=== PATIENT | female | born 1965 | race Caucasian/White ===

== ENCOUNTER 2024-05-07 12:12 | Inpatient (IN) | payer BC, SELFPAY ==
[2024-05-05] VITALS (14 sets, daily range): BP systolic 100–149; BP diastolic 68–87; PULSE 97–113; BMI 19.8
--- NOTE | 2024-05-05 09:25 | ED.GENMED ---
History of Present Illness
<Charlene Chery MD, Resident - Last Filed: 05/06/24 06:19>
General
Chief Complaint: Fainting/Passed Out
Time Seen by Provider: 05/05/24 08:49
History of Present Illness
History of Present Illness:
59 y/o female with pmhx of type 1 diabetes presenting to the ED via EMS after having a syncopal episode this morning. Pt remembers waking up this morning, getting out of bed and feeling a bit dizzy and was on her way to the bathroom. Pt does not
recall how she fell but remembers waking up after a few minutes and hearing her [id number] calling her name. She does not recall if she hit her head. Denies headache, nausea/vomiting, neck pain, shortness of breath. Denies any other prodromal
symptoms. Her blood sugar level at that time was ~190. Pt notes midsternal chest pain that is not sharp or pressure like, and is not associated with breathing or moving. Pt states has been feeling dizzy and fatigued for the past few days and her
blood sugar levels were as low as 47 last week (before ). Pt denies any prior episodes of syncope. Pt is visiting from [place].
Past History
<Charlene Chery MD, Resident - Last Filed: 05/06/24 06:19>
Past History
ED Past Medical History: IDDM
ED Past Surgical History: and Gynecological (D & C)
Social History
Tobacco: Non-smoker
Alcohol: None
Review of Systems
<Charlene Chery MD, Resident - Last Filed: 05/06/24 06:19>
Review of Systems
Constitutional: Reports fatigue
EENT: Reports runny nose
Respiratory: Reports no symptoms
Cardiac: Reports chest pain
ABD/GI: Reports no symptoms
: Reports no symptoms
Musculoskeletal: Reports no symptoms
Skin: Reports no symptoms
Neurological: Reports no symptoms
Endocrine: Reports no symptoms
Hematologic/Lymphatic: Reports no symptoms
Psychiatric: Reports no symptoms
Phy Exam
<Charlene Chery MD, Resident - Last Filed: 05/06/24 06:19>
Physical Exam
Physical Exam:
GENERAL: Alert, in no apparent distress.
EYE: Pupils equal and reactive.
NECK: Supple, no significant adenopathy. No midline tenderness.
ENT: o/p clr, mmm.
CARDIAC: Regular rate and rhythm.
LUNGS: Clear breath sounds bilaterally, no acute respiratory distress, no wheezes/rales/rhonchi
ABDOMEN: Soft, without focal tenderness, no r/g, no cvat
NEUROLOGICAL: Alert and oriented, no focal neuro deficits. Mild tenderness on left frontal scalp.
SKIN: Warm and dry, skin intact. No ecchymosis or abrasion.
MUSCULOSKELETAL: No edema, well perfused. ROM in all extremities is normal.
PSYCH: Normal and appropriate interaction.
Course
<Charlene Chery MD, Resident - Last Filed: 05/06/24 06:19>
Orders/Labs/Results
Orders:
Orders
05/05/24 08:49
EKG [Electrocardiogram (*1)] Urgent
Reason for Study: Syncope
EKG- Treatment ONCE
05/05/24 09:37
CT Head W/o Iv Contrast Urgent
Comment:
Reason For Exam: FALL AND HEAD TRAUMA
05/05/24 09:38
0.9% Sodium Chloride 1000 ml [Nss] 1,000 ml IV BOLUS
05/05/24 09:44
COVID-19 Antigen Urgent
Source: Nasal Swab
Complete Blood Count/With Diff Urgent
Comprehensive Metabolic Panel Urgent
D-Dimer Urgent
Glycohemoglobin (HgbA1c) Urgent
Troponin I Urgent
05/05/24 10:44
CT Chest Pe Study Urgent
Comment:
Reason For Exam: Chest pain and elevated D dimer
05/05/24 10:45
US Periph Venous LOWER Ext Surjit Urgent
Comment:
Reason For Exam: SOB and positive D dimer
05/05/24 14:53
Admit/Transfer Patient As Directed
Co-Sign Provider:
Level of Care: Observation services
Assign to:: Telemetry
Physician / Group: Steve King
Diagnosis: Syncope
Reason for Telemetry: Syncope
Date to Stop Telemetry: 05/07/24
Time to Stop Telemetry: 11:00
PRN Pain Medication Management As Directed
May give lesser potent ordered pain med per pt: Yes
preference::
Protocol:: Medication orders for pain may be administered in a
manner that supports deferring to patient preference
when the pt is:
- Requesting an ordered lesser potent pain medication.
Least to most potent pain medications are defined
as: acetaminophen < NSAID < tramadol < opioids
(morphine, oxycodone, hydromorphone).
- Requesting a lesser dose of the same medication IF
ORDERED.
- Requesting a less intrusive route of administration
if both routes are prescribed by the provider (PO <
IV).
05/05/24 14:54
Code Status As Directed
Resuscitation Status: Full Code
05/05/24 Dinner
1800 calorie (15 carb) Diabetic
At Your Request: Full Participation
05/05/24 15:36
Lactated Ringers [Lr] 1,000 ml IV 100 mls/hr
05/05/24 15:39
Influenza A+B Rapid Molecular Urgent
SILVANO Source: Nasal Swab
Specimen Description:
05/05/24 16:55
Dextrose 50%-Water [Dextrose 50% Syringe] 12.5 grams IV [id number] PRN
Glucagon [GlucaGen] 1 mg IM PRN PRN
Insulin Aspart Corrective Low [Novolog Flexpen-Low Resistance] See Protocol SC AC
05/05/24 18:30
Acetaminophen [Tylenol] 650 mg PO Q4HPRN PRN
Enoxaparin Sodium [Lovenox] 40 mg SC QPM
05/05/24 18:30
Activity As Directed
Activity Level: Ambulate
Bedside Glucose Monitoring As Directed
Frequency: Q1H
Orthostatic Vital Signs As Directed
Orthostatic VS Frequency: BID
Vital Signs As Directed
Frequency: Per unit guidelines
Weight As Directed
Frequency: Once
DX Deep Vein Thrombosis Video Routine
05/05/24 19:42
Hemoglobin A1c [Glycohemoglobin (HgbA1c)] Routine
05/06/24 06:00
Complete Blood Count/No Diff IN AM
05/07/24 11:00
DC Protocol for Telemetry ONCE
Abnormal Lab Results
05/05/24
09:44
Hgb 10.0 L g/dL
(12.0-16.0)
Hct 31.6 L %
(37.0-47.0)
MCV 74.5 L fL
(81.0-99.0)
MCH 23.6 L pg
(27.0-31.0)
MCHC 31.6 L g/dL
(33.0-37.0)
RDW 18.6 H %
(11.5-14.5)
MPV 10.9 H fL
(7.4-10.4)
Immature Gran % 0.6 H %
(0-0.5)
D-Dimer 2.15 H ug/mlFEU
(0.00-0.50)
BUN 29 H mg/dl
(7-17)
Glucose 176 H mg/dl
(70-99)
Alkaline Phosphatase 172 H U/L
(38-126)
05/05/24 09:44
05/05/24 09:44
Vital Signs
Initial and Last Documented VS:
Initial Vital Signs
Pulse Ox
99
05/05/24 08:48
Last Documented Vital Signs
Temp Pulse Resp BP Pulse Ox
97.9 F 77 18 121/65 96
05/06/24 03:34 05/06/24 05:15 05/06/24 05:15 05/06/24 04:00 05/06/24 05:15
<Naren Mcghee MD - Last Filed: 05/05/24 13:36>
Orders/Labs/Results
Orders:
Orders
05/05/24 08:49
EKG [Electrocardiogram (*1)] Urgent
Reason for Study: Syncope
EKG- Treatment ONCE
05/05/24 09:37
CT Head W/o Iv Contrast Urgent
Comment:
Reason For Exam: FALL AND HEAD TRAUMA
05/05/24 09:38
0.9% Sodium Chloride 1000 ml [Nss] 1,000 ml IV BOLUS
05/05/24 09:44
COVID-19 Antigen Urgent
Source: Nasal Swab
Complete Blood Count/With Diff Urgent
Comprehensive Metabolic Panel Urgent
D-Dimer Urgent
Glycohemoglobin (HgbA1c) Urgent
Troponin I Urgent
05/05/24 10:44
CT Chest Pe Study Urgent
Comment:
Reason For Exam: Chest pain and elevated D dimer
05/05/24 10:45
US Periph Venous LOWER Ext Surjit Urgent
Comment:
Reason For Exam: SOB and positive D dimer
05/05/24 14:53
Admit/Transfer Patient As Directed
Co-Sign Provider:
Level of Care: Observation services
Assign to:: Telemetry
Physician / Group: Steve King
Diagnosis: Syncope
Reason for Telemetry: Syncope
Date to Stop Telemetry: 05/07/24
Time to Stop Telemetry: 11:00
PRN Pain Medication Management As Directed
May give lesser potent ordered pain med per pt: Yes
preference::
Protocol:: Medication orders for pain may be administered in a
manner that supports deferring to patient preference
when the pt is:
- Requesting an ordered lesser potent pain medication.
Least to most potent pain medications are defined
as: acetaminophen < NSAID < tramadol < opioids
(morphine, oxycodone, hydromorphone).
- Requesting a lesser dose of the same medication IF
ORDERED.
- Requesting a less intrusive route of administration
if both routes are prescribed by the provider (PO <
IV).
05/05/24 14:54
Code Status As Directed
Resuscitation Status: Full Code
05/05/24 Dinner
1800 calorie (15 carb) Diabetic
At Your Request: Full Participation
05/05/24 15:36
Lactated Ringers [Lr] 1,000 ml IV 100 mls/hr
05/05/24 15:39
Influenza A+B Rapid Molecular Urgent
SILVANO Source: Nasal Swab
Specimen Description:
05/05/24 16:55
Dextrose 50%-Water [Dextrose 50% Syringe] 12.5 grams IV [id number] PRN
Glucagon [GlucaGen] 1 mg IM PRN PRN
Insulin Aspart Corrective Low [Novolog Flexpen-Low Resistance] See Protocol SC AC
05/05/24 18:30
Acetaminophen [Tylenol] 650 mg PO Q4HPRN PRN
Enoxaparin Sodium [Lovenox] 40 mg SC QPM
05/05/24 18:30
Activity As Directed
Activity Level: Ambulate
Bedside Glucose Monitoring As Directed
Frequency: Q1H
Orthostatic Vital Signs As Directed
Orthostatic VS Frequency: BID
Vital Signs As Directed
Frequency: Per unit guidelines
Weight As Directed
Frequency: Once
DX Deep Vein Thrombosis Video Routine
05/05/24 19:42
Hemoglobin A1c [Glycohemoglobin (HgbA1c)] Routine
05/06/24 06:00
Complete Blood Count/No Diff IN AM
05/07/24 11:00
DC Protocol for Telemetry ONCE
Abnormal Lab Results
05/05/24
09:44
Hgb 10.0 L g/dL
(12.0-16.0)
Hct 31.6 L %
(37.0-47.0)
MCV 74.5 L fL
(81.0-99.0)
MCH 23.6 L pg
(27.0-31.0)
MCHC 31.6 L g/dL
(33.0-37.0)
RDW 18.6 H %
(11.5-14.5)
MPV 10.9 H fL
(7.4-10.4)
Immature Gran % 0.6 H %
(0-0.5)
D-Dimer 2.15 H ug/mlFEU
(0.00-0.50)
BUN 29 H mg/dl
(7-17)
Glucose 176 H mg/dl
(70-99)
Alkaline Phosphatase 172 H U/L
(38-126)
05/05/24 09:44
05/05/24 09:44
Vital Signs
Initial and Last Documented VS:
Initial Vital Signs
Pulse Ox
99
05/05/24 08:48
Last Documented Vital Signs
Temp Pulse Resp BP Pulse Ox
97.9 F 77 18 121/65 96
05/06/24 03:34 05/06/24 05:15 05/06/24 05:15 05/06/24 04:00 05/06/24 05:15
<Charlene Chery MD, Resident - Last Filed: 05/06/24 06:19>
MDM/Problems Addressed
Differential Diagnosis Includes:
Vasovagal syncope
Arrhythmia
PE
Syncope 2/2 hypoglycemia
TIA/Stroke
MDM/Problems Addressed:
- CBC, CMP
- EKG, Troponin
- COVID-19
- Head CT w/o contrast
- D-dimer
- IVF
<Charlene Chery MD, Resident - Last Filed: 05/06/24 06:19>
*Critical Care Note
Total Time (30-74mins, 75-104mins- exclusive of procedures): Not Applicable
ED Attending Note
<Charlene Chery MD, Resident - Last Filed: 05/06/24 06:19>
-
Portions of this chart may have been created with voice recognition software.� Occasional wrong word or��sound alike� substitutions may have occurred due to the inherent limitations of voice recognition software.
<Naren Mcghee MD - Last Filed: 05/05/24 13:36>
ED Attending Note
Patient seen and examined by attending physician: Yes
I performed a history and physical exam of patient and discussed management with resident, I reviewed resident's note and agree with documented findings and plan of care.: Yes
ED Attending Note:
59-year-old female visiting from [place]. Has felt slightly off the last 2 to 3 days with some mild shortness of breath and fatigue. He stood up this morning from bed felt lightheaded walked into the bathroom and had a very brief syncopal
episode. Hit the left side of her head. No preceding chest pain palpitations. However after she woke up she had some mild chest discomfort. Mild headache. No neck pain no abdominal pain no other injury or complaint.
GENERAL: Alert and oriented in no apparent distress. Mild tenderness left scientology area. No swelling or deformity. No hematoma.
EYE: Orbits normal.
NECK: Supple, nontender
ENT: Pharynx without erythema
CARDIAC: Regular rate and rhythm without any obvious murmurs.
LUNGS: Clear breath sounds,normal
ABDOMEN: Soft, without focal tenderness or distention
NEUROLOGICAL: Alert and oriented , grossly non-focal
SKIN: Warm and dry, no rash or lesion, no discoloration, skin intact.
MUSCULOSKELETAL: No edema,no deformity.Good color
PSYCH: Normal and appropriate interaction.
Brief syncope described as likely vasovagal. Seems related to the lightheadedness with standing. However has not felt well the last few days. With some shortness of breath and a long flight will evaluate for PE. Clinically low suspicion. Also
with some brief chest pain we will do cardiac testing monitor labs fluids.
CT negative. Negative legs. However patient feels generally weak. Along with blood sugar concerns. Between the syncope weakness diabetes patient will be admitted
Discharge Plan
Departure
Patient Disposition: Admit
Date of Disposition: 05/05/24
Time of Disposition: 13:35
Presentation/result/management discussed w/ accepting MD/DO: Hospitalist
Discharge Problem:
Syncope
Interventions
Interventions:
*Risk Screen - Suicide Last Done: 05/05/24 20:29
*General Assessment Last Done: 05/05/24 08:51
*Neglect/Abuse Screening Last Done: 05/05/24 08:51
*Nursing Disposition Last Done: 05/05/24 18:31
ED- Cardiac Assessment Last Done: 05/05/24 09:12
ED- Neurological Assessment Last Done: 05/05/24 09:12
Discharge Date and Time
Discharge Date/Time: 05/05/24 18:33
[2024-05-05 10:12] LABS: % Basophils 0.6 % (0-2); % Eosinophils 2.1 % (0-6); % Immature Granulocytes 0.6 % (0-0.5); % Lymphocytes 25.1 % (20.5-51.1); % Monocytes 7.5 % (1.7-9.3); % Neutrophils 64.1 % (42.2-75.2); Absolute Eosinophils 0.1 10^3/uL (0-0.7); Absolute Lymphocytes 1.6 10^3/uL (1.2-3.4); Absolute Monocytes 0.5 10^3/uL (0.1-0.6); Hematocrit 31.6 % (37.0-47.0); Mean Corp Hgb Conc. 31.6 g/dL (33.0-37.0); Mean Corpuscular Hgb 23.6 pg (27.0-31.0); Mean Corpuscular Volume 74.5 fL (81.0-99.0); Mean Platelet Volume 10.9 fL (7.4-10.4); Nucleated Red Blood Cells % 0 %; Platelet Count 262 10^3/uL (130-400); Red Blood Cell Count 4.24 10^6/uL (4.20-5.40); Red Cell Dist. Width 18.6 % (11.5-14.5); White Blood Cell Count 6.3 10^3/uL (4.8-10.8)
[2024-05-05 10:16] LABS: ALT (SGPT) 30 U/L (0-35); AST (SGOT) 26 U/L (14-36); Albumin 4.1 g/dl (3.5-5.0); Alkaline Phosphatase 172 U/L (38-126); Blood Urea Nitrogen 29 mg/dl (7-17); Calcium 9.4 mg/dl (8.4-10.2); Carbon Dioxide 26 mmol/L (22-30); Chloride 99 mmol/L (98-107); Estimated Creatinine Clearance 78 ml/min; Glucose 176 mg/dl (70-99); Potassium 4.7 mmol/L (3.5-5.1); Sodium 137 mmol/L (135-145); Total Bilirubin 0.6 mg/dl (0.2-1.3); Total Protein 6.9 g/dl (6.3-8.2); eGFR > 60.00
[2024-05-05 10:17] LABS: COVID-19 Antigen Negative (Negative)
[2024-05-05] MEDS: NSS 1000 IV (10:18)
[2024-05-05 10:20] LABS: D-Dimer 2.15 ug/mlFEU (0.00-0.50)
[2024-05-05 10:27] LABS: Troponin I < 0.012 ng/ml
--- NOTE | 2024-05-05 14:07 | HPS.HSE ---
Family Physician
-
Family Physician: NOT KNOW UNKNOWN - PT DOES
Chief Complaint
-
Syncope
History of Present Illness
Patient is a 59-year-old female with past medical history significant for type 1 diabetes who presented to [facility] ED for evaluation of syncopal episode this morning. Patient reports she flew in from [place] last week to visit family and has
had nonspecific generalized not feeling 'great.' She reports feeling more fatigued, lightheadedness when standing from sitting position most of the time, some nausea, fair appetite, shortness of breath when walking up stairs and increased fatigued.
She also reports sugars have been off since arriving her for a visit, she has had high, 'highs' and low, 'lows' and intended to reach out to instrument person as she turned her insulin pump off. She denies fevers, chills, chest pain, vomiting,
constipation, diarrhea or urinary symptoms. Patient recalls waking to alarm at 0800 this morning and turning it off, she remembers getting up to head to bathroom and then she recalls her [id number] standing over her calling her name. Patient
reports she must have fallen forward as she woke laying face down. She denies any previous syncopal episode.
Medical History
Past Medical History
Past Medical History: Reports Other
Additional Past Medical History:
Type 1 diabetes
Past Surgical History: Reports Other
Additional Past Surgical History:
D & C
Social History
Tobacco: Non-smoker
Alcohol: Occasional
Drug: None
Living: Alone
Employment: Employed
Family History
Family History: Not pertinent
Allergies / Home Medications
Allergies reflects when Allergies were last updated in [facility].
Home Medications with original date entered in [facility]
Allergy/Medication List:
Allergies
Allergy/AdvReac Type Severity Reaction Status Date / Time
No Known Allergies Allergy Unverified 05/05/24 08:50
Home Medications
insulin glargine U-300 conc 300 unit/mL (3 mL) subcutaneous pen (Toujeo Max U-300 SoloStar) 13 unit SC HS 05/05/24
insulin lispro 100 unit/mL subcutaneous half-unit pen (Humalog Pepe KwikPen (U-100)) 6 sliding scale dose SC AC 05/05/24
therapeutic multivitamin 1 tab PO DAILY 05/05/24
Review of Systems
-
History Source: Patient
Constitutional: Reports Fatigue
EENT: Reports No Symptoms
Respiratory: Reports Other (shortness of breath with walking upstairs)
Cardiac: Reports Syncope
Abdomen/GI: Reports Nausea and Other (fair appetite)
: Reports No Symptoms
Musculoskeletal: Reports No Symptoms
Skin: Reports No Symptoms
Neurological: Reports Dizzy (lightheadedness when standing from sitting position) and Weakness
Endocrine: Reports No Symptoms
Hematologic/Lymphatic: Reports No Symptoms
Psych: Reports No Symptoms
Physical Exam
Vital Signs
Vital Signs
Temp Pulse Resp BP Pulse Ox
98.1 F 91 17 145/77 98
05/05/24 08:51 05/05/24 13:15 05/05/24 13:15 05/05/24 13:08 05/05/24 13:15
Physical Exam
General: Well Developed, Well Nourished, No Apparent Distress, Comfortable and Conversant
HEENT: NormoCephalic, Moist mucous membranes, Atraumatic, PERRLA, [place] Conjunctivae, Nose Appears Normal and Ears Appear Normal
Respiratory: Clear and Non Labored Respirations; No Wheezes, Rales, Rhonchi or Crackles
Cardiac: S1/S2 and Regular Rhythm; No Murmur, Rub or Gallop
Breast: Deferred by me
GI: Soft, Non Tender, Non Distended and Normal Bowel Sounds; No Organomegaly
Rectal: Deferred by Provider
Genito-urinary: Deferred by me
Musculoskeletal: No Clubbing, No Cyanosis and No Edema
Skin: Warm and IV/Catheter Site; No Rash
Neuro: Awake, Alert, AO x 3 and Nonfocal/grossly intact
Hematologic/Lymphatic: No Lymphadenopathy
Psych: Calm and Intact Judgment/Insight
Laboratory Results
-
05/05/24 09:44
05/05/24:44
Laboratory Results
Total Bilirubin 0.6 mg/dl (0.2-1.3) 05/05/24:44
AST 26 U/L (14-36) 05/05/24:44
ALT 30 U/L (0-35) 05/05/24:44
Alkaline Phosphatase 172 U/L (38-126) H 05/05/24:44
Troponin I < 0.012 ng/ml 05/05/24:44
Data Reviewed
-
CT Scan: Report Reviewed by me (Head: Normal head CT; Chest: 1. No evidence of pulmonary embolism or thoracic aortic dissection. 2. Clear lungs)
Ultrasound: Report Reviewed by me (Peripheral Vascular US: No evidence of DVT from the common femoral through the upper calf veins on either side.)
Lab Data: Labs Reviewed by me (hgb 10, Hct 31.6, D-Dimer 2.15, BUN 29, Alk Phos 172)
Impression/Plan
-
IMPRESSION/PLAN:
#Syncopal Episode
Vasovagal vs. low blood sugar vs. PE vs. arrhythmia vs. orthostatic hypotension
Sugars reported as low as mid 40s and as high as 400s
- Admit to telemetry
- Orthostatic VS
- Covid negative
- influenza pending
- IVF LR 100cc/hr
- check A1C
#Type 1 Diabetes
A1C
- hold current insulin orders
- Accuchecks AC & HS
- SSI
- check A1C
Code status: Full code
DVT Prophylaxis: Lovenox sq
--- NOTE | 2024-05-05 14:53 | W.PN.UPDATE ---
Update Note
Progress Note Update
This is an addendum to the H&P written by Svetlana Holbrook on 05/05/2024. Patient seen and examined independently with SECOND LANGUAGE TUTOR.
59-year-old female past medical history of type 1 diabetes on insulin pump, presenting with syncopal episode this morning. Patient visiting from [place] with dizziness and fatigue over the past week. Blood sugar 47 last week. Patient did have
midsternal chest pain primarily after the fall associate with breathing. Does have shortness of breath with mild exertion.
Hypoglycemia episode last week and stopped insulin pump with sugars up to 400s since then.
EKG shows normal sinus rhythm. D-dimer of 2.15. CT head negative. CT PE negative. Venous ultrasound negative.
Suspect viral URI resulting in orthostatic hypotension. Check COVID and influenza. Check orthostatic vital signs. IV fluids. Consider echo if workup negative. Insulin sliding scale for now.
[2024-05-05 17:02] LABS: Glucose - Point of Care 478 mg/dl (70-99)
[2024-05-05] MEDS: LR 1000 IV (17:02)
[2024-05-05 17:29] LABS: Blood Urea Nitrogen 23 mg/dl (7-17); Calcium 8.6 mg/dl (8.4-10.2); Carbon Dioxide 19 mmol/L (22-30); Chloride 96 mmol/L (98-107); Estimated Creatinine Clearance 91 ml/min; Glucose 482 mg/dl (70-99); Potassium 5.3 mmol/L (3.5-5.1); Sodium 134 mmol/L (135-145); eGFR > 60.00
[2024-05-05] MEDS: NOVOLOG FLEXPEN-LOW RESISTANCE 6 UNITS SC (17:49)
[2024-05-05 18:53] LABS: Glucose - Point of Care 440 mg/dl (70-99)
--- NOTE | 2024-05-05 19:15 | TRANSFER ---
Received patient via stretcher from ED. Patient ambulated self from stretcher to bed. Patient noted a diabetic accucheck taken glucose of 440. STAT glucose awaiting to be drawn. This RN gave shift report to assistant store director RN. Patient oriented to room,
and situation. VSS. call alan within reach
[2024-05-05 20:02] LABS: Glucose 362 mg/dl (70-99)
[2024-05-05 20:05] LABS: Blood Urea Nitrogen 22 mg/dl (7-17); Calcium 9.1 mg/dl (8.4-10.2); Carbon Dioxide 18 mmol/L (22-30); Chloride 96 mmol/L (98-107); Estimated Creatinine Clearance 77 ml/min; Glucose 367 mg/dl (70-99); Potassium 4.4 mmol/L (3.5-5.1); Sodium 134 mmol/L (135-145); eGFR > 60.00
[2024-05-05 20:13] LABS: B-Hydroxybutyrate 3.21 mmol/L (0.02-0.27)
--- NOTE | 2024-05-05 20:26 | W.PN.UPDATE ---
Update Note
Progress Note Update
Pt admitted for syncope/new dx flu pos
PT is type 1 dm with hx of labile blood sugars last week or so. On admit pt did now have a anion gap. Since arrival to unit pt now with gap 0f 19 and now 20
BG now 367-440
Will transfer to IMU and start DKA protocol.
Consult DM seo specialist for tomorrow
--- NOTE | 2024-05-05 21:00 | PTCARENOTE ---
Received pt from previous shift. STAT glucose obtained after accucheck showed blood sugar >400. Holland texted house provider at 19:26 , who ordered more labs. Labs obtained and revealed pt in DKA. House provider placed orders for transfer to IMU for
DKA protocol. Brought pt over in bed along with insulin gtt and fluids. Handoff of monitored pt completed with Kaylen.
[2024-05-05] MEDS: LOVENOX 40 MG SC (21:02)
[2024-05-05] MEDS: NOVOLIN R INSULIN INFUSION 100 IV (21:32)
[2024-05-05] MEDS: NSS with KCL 20 MEQ 1000 IV (21:32)
[2024-05-05 21:43] LABS: Glucose - Point of Care 432 mg/dl (70-99)
--- NOTE | 2024-05-05 21:58 | PTCARENOTE ---
Received report from Osiel CLEMENTE as a transfer from [facility]. Pt AAOx3, offers no complaints other than generalized malaise and occasional dizziness. NSR on the monitor, lungs clear but diminished in the L base. Remainder of assessment as documented. Pt's
accuchek remains 'RR HIGH'. IVF w/ 20meqKCl initiated along with insulin gtt @ 6units/hr, per order, see MAR. Pt assisted to the bathroom. Oriented to room and call alan. Pt advised not to attempt to get out of bed on her own secondary to dizziness
to which pt expresses understanding. Pt resting comfortably in bed.
[2024-05-05 22:38] LABS: Glucose - Point of Care 368 mg/dl (70-99)
[2024-05-05 23:41] LABS: Glucose - Point of Care 226 mg/dl (70-99)
[2024-05-06] VITALS (16 sets, daily range): BP systolic 107–150; BP diastolic 65–110; PULSE 81–85
[2024-05-06 00:50] LABS: Blood Urea Nitrogen 19 mg/dl (7-17); Calcium 8.8 mg/dl (8.4-10.2); Carbon Dioxide 27 mmol/L (22-30); Chloride 103 mmol/L (98-107); Estimated Creatinine Clearance 90 ml/min; Glucose 168 mg/dl (70-99); Potassium 4.2 mmol/L (3.5-5.1); Sodium 140 mmol/L (135-145); eGFR > 60.00
[2024-05-06 00:54] LABS: Glucose - Point of Care 129 mg/dl (70-99)
[2024-05-06 01:47] LABS: Glucose - Point of Care 96 mg/dl (70-99)
[2024-05-06] MEDS: D5/0.9% with KCL 20 MEQ 1000 IV ×2 (02:05→07:25)
[2024-05-06 03:14] LABS: Glucose - Point of Care 113 mg/dl (70-99)
[2024-05-06 04:24] LABS: Glucose - Point of Care 136 mg/dl (70-99)
[2024-05-06 05:06] LABS: Blood Urea Nitrogen 16 mg/dl (7-17); Calcium 8.6 mg/dl (8.4-10.2); Carbon Dioxide 28 mmol/L (22-30); Chloride 107 mmol/L (98-107); Estimated Creatinine Clearance 90 ml/min; Glucose 126 mg/dl (70-99); Potassium 4.4 mmol/L (3.5-5.1); Sodium 143 mmol/L (135-145); eGFR > 60.00
[2024-05-06 05:43] LABS: Glucose - Point of Care 171 mg/dl (70-99)
[2024-05-06 07:09] LABS: Glucose - Point of Care 140 mg/dl (70-99)
[2024-05-06 08:19] LABS: Glucose - Point of Care 117 mg/dl (70-99)
[2024-05-06 08:47] LABS: Hematocrit 29.2 % (37.0-47.0); Hemoglobin 9.1 g/dL (12.0-16.0); Mean Corp Hgb Conc. 31.2 g/dL (33.0-37.0); Mean Corpuscular Hgb 23.6 pg (27.0-31.0); Mean Corpuscular Volume 75.8 fL (81.0-99.0); Mean Platelet Volume 10.9 fL (7.4-10.4); Platelet Count 265 10^3/uL (130-400); Red Blood Cell Count 3.85 10^6/uL (4.20-5.40); Red Cell Dist. Width 19.3 % (11.5-14.5); White Blood Cell Count 6.6 10^3/uL (4.8-10.8)
[2024-05-06 08:58] LABS: Glycohemoglobin (HgbA1c) 8.8 % (4.0-5.6)
[2024-05-06 08:58] LABS: Glycohemoglobin (HgbA1c) 8.8 % (4.0-5.6)
[2024-05-06 09:02] LABS: Blood Urea Nitrogen 14 mg/dl (7-17); Calcium 8.6 mg/dl (8.4-10.2); Carbon Dioxide 26 mmol/L (22-30); Chloride 108 mmol/L (98-107); Estimated Creatinine Clearance 90 ml/min; Glucose 114 mg/dl (70-99); Potassium 4.3 mmol/L (3.5-5.1); Sodium 144 mmol/L (135-145); eGFR > 60.00
[2024-05-06 09:24] LABS: Glucose - Point of Care 116 mg/dl (70-99)
--- NOTE | 2024-05-06 09:27 | PTCARENOTE ---
Assumed care of patient at beginning of this shift from previous RN with insulin infusing at 1unit/hr and IVF infusing at 200ml/hr. BMP drawn and sent to lab. Accu check 116; insulin rate decreased to 0.5units/hr. Report given to Gen RN as she will
be taking over care at this time.
[2024-05-06 10:25] LABS: Glucose - Point of Care 129 mg/dl (70-99)
[2024-05-06 11:15] LABS: Glucose - Point of Care 157 mg/dl (70-99)
--- NOTE | 2024-05-06 11:35 | PN.DE.MGMTRT ---
Insulin Management
- -
05/06/2024: Diabetes management Consult
59 year old female who is visiting from [place] with PMH: T2DM, presented to [facility] ED for evaluation of syncopal episode, found to be in DKA, started on DKA protocol. Glucose on admission was 478 with a GAP of 20, A1C 8.8%, Cr 0.6, eGFR >60.
Pt awake, alert, sitting up in chair, pleasant, offers no complaints. Stats he was using an insulin pump- Tandem T-Slim and a CGM-Dexcom for diabetes management.
Pt does not want to resume her insulin pump therapy, states she needs to see her Asic Verification Engineer to discuss issues with pump prior to resuming it. She was using insulin pens prior to switching to the pump, taking Lantus 18 units @ HS and NovoLog 5-7
units with meals. Pt is requesting to resume SQ insulin pen use. Her GAP has closed x2. Current glucose range is 96 to 157, requiring 0.5 to 2 units of insulin/hr.
Will transition off the insulin drip to SQ insulin. Give Lantus 12 units NOW and 15 units @ HS. Start NovoLog 4 units AC and low corrective with meals
Pt is 5'6' 123 lbs. Will add 2000 eber diet. Will con to follow.
Diabetes History
- -
Type of Diabetes: 1
Pre-Admission Diabetes Regimen
05/05/24 05/05/24 05/06/24
17:06 19:42 00:15
Creatinine 0.6 0.7 0.6
05/06/24 05/06/24 05/06/24
04:13 06:00 07:57
Creatinine 0.6 Cancelled 0.6
Lab Results
Hemoglobin A1c 8.8 % (4.0-5.6) H 05/05/24 19:42
Insulin Pump Settings
IP Diabetes Regimen
05/05/24 05/05/24 05/05/24
17:00 17:06 18:52
Glucose 482 H*
POC Glucose 478 H* 440 H
05/05/24 05/05/24 05/05/24
19:42 19:42 21:31
Glucose 362 H 367 H
POC Glucose 432 H
05/05/24 05/05/24 05/06/24
22:27 23:29 00:15
Glucose 168 H
POC Glucose 368 H 226 H
05/06/24 05/06/24 05/06/24
00:43 01:35 03:03
Glucose
POC Glucose 129 H 96 113 H
05/06/24 05/06/24 05/06/24
04:12 04:13 05:30
Glucose 126 H
POC Glucose 136 H 171 H
05/06/24 05/06/24 05/06/24
06:00 06:57 07:57
Glucose Cancelled 114 H
POC Glucose 140 H 117 H
05/06/24 05/06/24 05/06/24
09:13 10:14 11:04
Glucose
POC Glucose 116 H 129 H 157 H
Patient Education
[2024-05-06 12:14] LABS: Glucose - Point of Care 167 mg/dl (70-99)
[2024-05-06 13:13] LABS: Glucose - Point of Care 129 mg/dl (70-99)
[2024-05-06 13:26] LABS: Blood Urea Nitrogen 11 mg/dl (7-17); Calcium 8.5 mg/dl (8.4-10.2); Carbon Dioxide 25 mmol/L (22-30); Chloride 109 mmol/L (98-107); Estimated Creatinine Clearance 90 ml/min; Glucose 151 mg/dl (70-99); Potassium 4.4 mmol/L (3.5-5.1); Sodium 141 mmol/L (135-145); eGFR > 60.00
[2024-05-06] MEDS: LANTUS 0.12 UNITS SC (14:00)
[2024-05-06 14:14] LABS: Glucose - Point of Care 138 mg/dl (70-99)
[2024-05-06] MEDS: D5/0.9% with KCL 20 MEQ IV ×2 (14:55)
--- NOTE | 2024-05-06 15:43 | W.PN.HOSP.TC ---
Today's Communication/Plan
-
supportive care
switch to long acting insulin sq, stop insulin ggt
monitor glucose levels
let fluids fall off this evening
telemetry
Assessment / Plan
Assessment / Plan
Physical Exam
General: Well Developed, Well Nourished, No Apparent Distress, Comfortable and Conversant
HEENT: NormoCephalic, Moist mucous membranes, Atraumatic, PERRLA, [place] Conjunctivae, Nose Appears Normal and Ears Appear Normal
Respiratory: Clear and Non Labored Respirations; No Wheezes, Rales, Rhonchi or Crackles
Cardiac: S1/S2 and Regular Rhythm; No Murmur, Rub or Gallop
Breast: Deferred by me
GI: Soft, Non Tender, Non Distended and Normal Bowel Sounds; No Organomegaly
Rectal: Deferred by Provider
Genito-urinary: Deferred by me
Musculoskeletal: No Clubbing, No Cyanosis and No Edema
Skin: Warm and IV/Catheter Site; No Rash
Neuro: Awake, Alert, AO x 3 and Nonfocal/grossly intact
Hematologic/Lymphatic: No Lymphadenopathy
Psych: Calm and Intact Judgment/Insight
#Syncopal Episode
Most likely secondary to flu positive, viral illness
- Admit to tele
-Symptoms >72 hours; Hold on tamiflu
- Fluids
#DKA
#Type 1 Diabetes
-s/p insulin ggt, D5NS
-gap closed
-DM SUPERVISOR [employer]GET[employer] consulted
-switch off insulin ggt, transition to Subq
- check A1C - 8.8
Code status: Full code
DVT Prophylaxis: Lovenox sq
Total time spent on today's encounter was 51 minutes which included time spent in counseling the patient/family regarding diagnosis and treatment plan as listed above, goals of care, and symptom management. Case was discussed with nursing staff,
specialists, and care coordinators/case management. All labs and imaging personally reviewed by me. Remainder the time spent in detailed review of previous records, lab data, imaging, and other medical provider documentation.
Anticipated Discharge: 24 - 48 hours
Subjective/Interval History
-
Date of Service: May 06, 2024
doing better
Objective Data
-
Labs:
Laboratory Results
05/06/24 05/06/24 05/06/24
04:13 06:00 07:57
WBC 6.6
Hgb 9.1 L
Hct 29.2 L
Plt Count 265
Sodium 143 Cancelled 144
Potassium 4.4 Cancelled 4.3
Chloride 107 Cancelled 108 H
Carbon Dioxide 28 Cancelled 26
BUN 16 Cancelled 14
Creatinine 0.6 Cancelled 0.6
Glucose 126 H Cancelled 114 H
Calcium 8.6 Cancelled 8.6
05/06/24
12:31
WBC
Hgb
Hct
Plt Count
Sodium 141
Potassium 4.4
Chloride 109 H
Carbon Dioxide 25
BUN 11
Creatinine 0.5 L
Glucose 151 H
Calcium 8.5
Vital Signs:
Vital Signs
Temp Pulse Resp BP Pulse Ox
97.7 F 77 18 121/65 96
05/06/24 15:33 05/06/24 05:15 05/06/24 05:15 05/06/24 04:00 05/06/24 05:15
Review of Systems
-
History Source: Patient
All other systems: Not reviewed unless documented
Data Reviewed
-
CT Scan: Report Reviewed by me
Ultrasound: Report Reviewed by me
Labs: Labs Reviewed by me
--- NOTE | 2024-05-06 15:52 | CM ---
Patient who resides in [facility] with Hx DM on insulin pump. Room air. Seen by DM Educator. Insulin gtt switched to SC Insulin. Receiving IVF.
Met with patient who resides in a 3 story house in [facility], and who is here visiting her mother who was being moved tomorrow to an assisted living facility.
The patient was independent in ADLs and ambulation.
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
Her only DME are an insulin pump and Dexcom 6 Continuous Glucose Monitor.
No prior VN.
Her new PCP is with [facility].
She does not know any local pharmacies, but will want one in [place] near where her sister lives.
The patient plans on returning home at the end of this week and returning to work.
No CM d/c needs identified.
Plan home.
[2024-05-06] MEDS: NOVOLOG FLEXPEN 4 UNITS SC (17:22)
[2024-05-06 17:31] LABS: Glucose - Point of Care 107 mg/dl (70-99)
[2024-05-06] MEDS: LOVENOX 40 MG SC (18:38)
[2024-05-06 18:39] LABS: Blood Urea Nitrogen 11 mg/dl (7-17); Calcium 9.3 mg/dl (8.4-10.2); Carbon Dioxide 25 mmol/L (22-30); Chloride 106 mmol/L (98-107); Estimated Creatinine Clearance 90 ml/min; Glucose 120 mg/dl (70-99); Potassium 4.1 mmol/L (3.5-5.1); Sodium 142 mmol/L (135-145); eGFR > 60.00
--- NOTE | 2024-05-06 21:54 | PTCARENOTE ---
This RN cannot verify accuracy of VS prior to 18:45
[2024-05-06 22:14] LABS: Glucose - Point of Care 167 mg/dl (70-99)
[2024-05-06 22:25] LABS: Blood Urea Nitrogen 12 mg/dl (7-17); Calcium 8.7 mg/dl (8.4-10.2); Carbon Dioxide 26 mmol/L (22-30); Chloride 106 mmol/L (98-107); Estimated Creatinine Clearance 90 ml/min; Glucose 169 mg/dl (70-99); Potassium 4.1 mmol/L (3.5-5.1); Sodium 138 mmol/L (135-145); eGFR > 60.00
--- NOTE | 2024-05-06 22:42 | PTCARENOTE ---
Rec'd pt from previous RN, AAOx3, resting comfortably in chair. No IVF running upon assessment, this RN reached out to TANMAY Correa regarding status of active IVF order. Pt states that she was told she 'did not need it anymore'. R AC IV patent. Pt
able to ambulate to bathroom with minimal assistance with monitor wires. Denies weakness. VSS. Lungs CTA. DP pulses present, normal. BMP drawn per MD order. Pt downgraded to telemetry. This RN placed pt on tele pack and called report to 4[facility] RN.
--- NOTE | 2024-05-06 23:00 | PTCARENOTE ---
Pt arrived to [facility] from IMU and ambulated independently into bed. VSS, pt is AAOx3, no complaints of pain at this time. Pt oriented to room, call alan within reach. Plan of care discussed with pt and evening Lantus 15 units provided to pt;
accuchek tonight was 167. Droplet precautions in place for flu + status.
[2024-05-06] MEDS: LANTUS 0.15 UNITS SC (23:20)
[2024-05-07] MEDS: D5/0.9% with KCL 20 MEQ IV ×3 (00:24→09:06)
[2024-05-07 02:57] VITALS: BP 123/72
[2024-05-07 03:34] LABS: Glucose - Point of Care 46 mg/dl (70-99)
[2024-05-07 04:08] LABS: Glucose - Point of Care 74 mg/dl (70-99)
--- NOTE | 2024-05-07 04:09 | PTCARENOTE ---
Pt rang at 0330 and reported that her glucose monitor was reading 68. Pt's blood sugar checked on the hospital's accuchek machine and is reading 46. Pt reports feeling 'shaky' at this time. 4 oz of orange juice provided to pt. Blood sugar
rechecked 15 minutes after drinking orange juice was 74. Will recheck blood sugar in 2 hours per protocol.
[2024-05-07 06:37] LABS: Glucose - Point of Care 60 mg/dl (70-99)
[2024-05-07 07:00] VITALS: BP 131/71
[2024-05-07 07:40] LABS: Glucose - Point of Care 81 mg/dl (70-99)
--- NOTE | 2024-05-07 07:56 | PN.DE.MGMTRT ---
Insulin Management
- -
05/07/2024: Diabetes management F/U:
59 year old female who is visiting from [place] with PMH: T2DM, presented to [place] ED for evaluation of syncopal episode, found to be in DKA, started on DKA protocol. Glucose on admission was 478 with a GAP of 20. Was using an insulin pump-
Tandem T-Slim and a CGM-Dexcom for diabetes management. A1C 8.8%, Cr 0.6, eGFR >60. Routinely follows up with her Sock Turner in [facility]. Pt does not want to resume her insulin pump therapy, states she needs to see her
Sock Turner to discuss issues with pump prior to resuming it. She was using insulin pens prior to switching to the pump, taking Lantus 18 units @ HS and NovoLog 5-7 units with meals. Pt is requesting to resume SQ insulin pen use. Her GAP has
closed x2. Current glucose range is 96 to 157, requiring 0.5 to 2 units of insulin/hr.
Pt awake, alert, sitting up in chair, pleasant, offers no complaints.
Transitioned off insulin drip to SQ insulin yesterday.
Noted for an episode of Hypoglycemia as low as 46 @03:32 AM.
Will reduce Lantus to 12 units @ HS. Current glucose 81 after treatment for a low blood sugar of 60@ 06:35
Will give reduced dose of NovoLog at breakfast. Spoke to Nurse via TT, advised to hold the AC NovoLog until pt has received her tray this morning.
Will cont to follow.
Diabetes History
- -
Type of Diabetes: 1
Pre-Admission Diabetes Regimen
05/06/24 05/06/24 05/06/24
07:57 12:31 17:49
Creatinine 0.6 0.5 L 0.5 L
05/06/24
22:03
Creatinine 0.6
Lab Results
Hemoglobin A1c 8.8 % (4.0-5.6) H 05/05/24 19:42
Insulin Pump Settings
IP Diabetes Regimen
05/06/24 05/06/24 05/06/24
07:57 09:13 10:14
Glucose 114 H
POC Glucose 117 H 116 H 129 H
05/06/24 05/06/24 05/06/24
11:04 12:02 12:31
Glucose 151 H
POC Glucose 157 H 167 H
05/06/24 05/06/24 05/06/24
13:02 14:03 17:20
Glucose
POC Glucose 129 H 138 H 107 H
05/06/24 05/06/24 05/06/24
17:49 22:00 22:03
Glucose 120 H 169 H
POC Glucose 167 H
05/07/24 05/07/24 05/07/24
03:32 04:05 06:35
Glucose
POC Glucose 46 L* 74 60 L
05/07/24
07:38
Glucose
POC Glucose 81
Meal type: Dinner
Amount consumed: 80%
Patient Education
[2024-05-07 08:55] LABS: Hematocrit 33.4 % (37.0-47.0); Mean Corp Hgb Conc. 29.9 g/dL (33.0-37.0); Mean Corpuscular Hgb 23.3 pg (27.0-31.0); Mean Corpuscular Volume 77.7 fL (81.0-99.0); Mean Platelet Volume 10.1 fL (7.4-10.4); Platelet Count 280 10^3/uL (130-400); White Blood Cell Count 6.6 10^3/uL (4.8-10.8)
[2024-05-07 09:21] LABS: ALT (SGPT) 31 U/L (0-35); AST (SGOT) 44 U/L (14-36); Albumin 3.9 g/dl (3.5-5.0); Alkaline Phosphatase 145 U/L (38-126); Blood Urea Nitrogen 10 mg/dl (7-17); Calcium 9.1 mg/dl (8.4-10.2); Carbon Dioxide 24 mmol/L (22-30); Chloride 104 mmol/L (98-107); Estimated Creatinine Clearance 90 ml/min; Glucose 85 mg/dl (70-99); Magnesium 2.1 mg/dl (1.6-2.3); Potassium 4.6 mmol/L (3.5-5.1); Sodium 141 mmol/L (135-145); Total Bilirubin 0.4 mg/dl (0.2-1.3); Total Protein 6.8 g/dl (6.3-8.2); eGFR > 60.00
[2024-05-07] MEDS: NOVOLOG FLEXPEN SC ×2 (09:37→12:44)
[2024-05-07] MEDS: NOVOLOG FLEXPEN 2 UNITS SC (10:02)
[2024-05-07 11:00] VITALS: BP 145/86
[2024-05-07 11:16] LABS: Glucose - Point of Care 177 mg/dl (70-99)
--- NOTE | 2024-05-07 12:26 | W.PN.HOSP.TC ---
Addendum entered and electronically signed by Marv Neal MD 05/08/24 16:15:
[id number]
Original Note:
Today's Communication/Plan
-
transition to subq insulin
dc
f/u pcp, endo outpt
Assessment / Plan
Assessment / Plan
Physical Exam
General: Well Developed, Well Nourished, No Apparent Distress, Comfortable and Conversant
HEENT: NormoCephalic, Moist mucous membranes, Atraumatic, PERRLA, [place] Conjunctivae, Nose Appears Normal and Ears Appear Normal
Respiratory: Clear and Non Labored Respirations; No Wheezes, Rales, Rhonchi or Crackles
Cardiac: S1/S2 and Regular Rhythm; No Murmur, Rub or Gallop
Breast: Deferred by me
GI: Soft, Non Tender, Non Distended and Normal Bowel Sounds; No Organomegaly
Rectal: Deferred by Provider
Genito-urinary: Deferred by me
Musculoskeletal: No Clubbing, No Cyanosis and No Edema
Skin: Warm and IV/Catheter Site; No Rash
Neuro: Awake, Alert, AO x 3 and Nonfocal/grossly intact
Hematologic/Lymphatic: No Lymphadenopathy
Psych: Calm and Intact Judgment/Insight
#Syncopal Episode
Most likely secondary to flu positive, viral illness
- Admit to tele
-Symptoms >72 hours; Hold on tamiflu
- Fluids
#Influenza A
-supportive care
#DKA
#Type 1 Diabetes
-s/p insulin ggt, D5NS
-gap closed
-DM LINOTYPE MECHANIC consulted
-switch off insulin ggt, transition to Subq - tolerating well
- check A1C - 8.8
-f/u Endo outpt
Code status: Full code
DVT Prophylaxis: Lovenox sq
More than 30 minutes spent in discharge including
Final examination of the patient
Summarizing hospital stay
Instructions for continuing care to all relevant caregivers
Preparation of discharge records, prescriptions, and referral forms
Total time spent (35 in minutes):
Anticipated Discharge: Today
Subjective/Interval History
-
Date of Service: May 07, 2024
doing well, has mild lower fingersticks, otherwise doing better
Objective Data
-
Labs:
Laboratory Results
05/07/24
08:01
WBC 6.6
Hgb 10.0 L
Hct 33.4 L
Plt Count 280
Sodium 141
Potassium 4.6
Chloride 104
Carbon Dioxide 24
BUN 10
Creatinine 0.6
Glucose 85
Calcium 9.1
Total Bilirubin 0.4
AST 44 H
ALT 31
Alkaline Phosphatase 145 H
Vital Signs:
Vital Signs
Temp Pulse Resp BP Pulse Ox
98.2 F 87 16 145/86 98
05/07/24 11:00 05/07/24 11:00 05/07/24 11:00 05/07/24 11:00 05/07/24 11:00
I&O
05/06/24 05/07/24 05/08/24
06:59 06:59 06:59
Intake Total 480 / 480 480 / 480
Balance 480 / 480 480 / 480
Review of Systems
-
History Source: Patient
All other systems: Not reviewed unless documented
Data Reviewed
-
CT Scan: Report Reviewed by me
Ultrasound: Report Reviewed by me
Labs: Labs Reviewed by me
--- NOTE | 2024-05-07 12:28 | W.DS.TRANS ---
DC Summary - Clinical Care Coordinator
-
Discharge Instructions:
Discharge Diagnosis/Procedures
#Syncopal Episode
#Influenza
#DKA
Diet Diabetic, Carb Controlled
Blood Work Hemoglobin A1c in 3 months
Instructions:
Stand-Alone Forms:
Changes to Home Medications: Yes
Discharge Medications:
DC Medications w/original date entered in [employer]
therapeutic multivitamin 1 tab PO DAILY Supplement 05/05/24
insulin aspart U-100 100 unit/mL (3 mL) subcutaneous pen 4 unit (0.04 mL) SC AC #15 mL 05/07/24
insulin glargine U-300 conc 300 unit/mL (3 mL) subcutaneous pen (Toujeo Max U-300 SoloStar) 12 unit (0.04 mL) SC HS Diabetes #6 mL 05/07/24
pen needle, diabetic 29 gauge #100 ea 05/07/24
Home Medication Changes
insulin aspart U-100 100 unit/mL (3 mL) subcutaneous pen 4 unit (0.04 mL) SC AC #15 mL 05/07/24
insulin glargine U-300 conc 300 unit/mL (3 mL) subcutaneous pen (Toujeo Max U-300 SoloStar) 12 unit (0.04 mL) SC HS Diabetes #6 mL 05/07/24
pen needle, diabetic 29 gauge #100 ea 05/07/24
Pending Results: No
--- NOTE | 2024-05-07 12:36 | CM ---
website project manager reviewed patient's chart and met with patient and patient has been switched to inpatient, patient made aware.
Plan; Home today, no needs.
== END 2024-05-07 13:45 | disposition home or self-care (01) | DRG 152 ==
LOC: 4 WEST ACU 12:12
PROVIDERS: Nurse Practitioner Family; ADMITTING PHYSICIAN Hospitalist; ATTENDING PHYSICIAN Internal Medicine; EMERGENCY PHYSICIAN Emergency Medicine
DX: J11.1 Influenza due to unidentified influenza virus with other respiratory manifestations (principal); E11.10 Type 2 diabetes mellitus with ketoacidosis without coma; R55 Syncope and collapse; Z79.4 Long term (current) use of insulin; Z11.52 Encounter for screening for COVID-19
CPT/HCPCS: 70450; 71275; 80048; 80053; 82010; 82947; 82962; 83036; 83735; 84484; 85025; 85027; 85379; 87502; 87811; 93005; 93970; 99285; Q9967